=== PATIENT | female | born 1980 | race Native Hawaiian/Other Pacific Islander ===

== ENCOUNTER 2022-04-15 14:41 | Outpatient (CLI) | payer BC | END 2022-04-15 19:14 | disposition home or self-care (01) | LOC: RESP 14:41 | PROVIDERS: ATTEND Specialist | DX: I10 Essential (primary) hypertension (principal) ==

== ENCOUNTER 2022-04-21 09:31 | Outpatient (CLI) | payer BC ==
[~2022-04-21] VITALS: Ht 33 cm; Wt 63.5 kg
== END 2022-04-21 19:13 | disposition home or self-care (01) ==
LOC: NM 09:31
PROVIDERS: ATTEND Specialist
DX: I10 Essential (primary) hypertension (principal)
CPT/HCPCS: A9500; J2785

== ENCOUNTER 2023-07-08 09:30 | Outpatient (CLI) | payer BC | END 2023-07-08 19:26 | disposition home or self-care (01) | LOC: NM 09:30 | PROVIDERS: ATTEND Internal Medicine | DX: E05.80 Other thyrotoxicosis without thyrotoxic crisis or storm (principal); E11.40 Type 2 diabetes mellitus with diabetic neuropathy, unspecified | CPT/HCPCS: A9516 ==